=== PATIENT | female | born 1965 | race African-American/Black ===

== ENCOUNTER 2018-03-07 22:01 | Inpatient (IN) | payer OTHER ==
[~2018-03-07] VITALS: Ht 172.7 cm; Wt 111.8 kg
[~2018-03-07 22:01] MED LIST: CALCIUM500 M4 PO; DILTIAZEM 24HR120 MG PO; FEOSOL325 MG PO; HYDROCHLOROTHIA25 MG PO; HYDROCODON-ACE1 EAC7 PO; KEFLEX500 MG PO; MOBIC7.5 MG PO; NAPROSYN500 MG PO; VITAMIN D31000 UNI2 PO; ZESTRIL,PRINIVI10 MG PO
[2018-03-08 06:22] VITALS: BP 155/86
[2018-03-08 10:54] LABS: HEMATOCRIT 35.8 % (36.0-46.0); HEMOGLOBIN 11.1 G/DL (11.9-15.5); MCV 89.1 FL (83-99)
[2018-03-08 12:40] VITALS: BP 142/64
[2018-03-08 15:41] VITALS: BP 127/67
[2018-03-08 20:23] VITALS: BP 143/73
[2018-03-09 00:30] VITALS: BP 138/87
[2018-03-09 04:19] VITALS: BP 127/69
[2018-03-09 04:52] LABS: HEMATOCRIT 33.7 % (36.0-46.0); HEMOGLOBIN 10.9 G/DL (11.9-15.5)
[2018-03-09 05:06] LABS: CHLORIDE 97 mEq/L (99-109)
[2018-03-09 05:07] LABS: SODIUM 138 mEq/L (136-147)
[2018-03-09 05:08] LABS: GLUCOSE 120 mg/dL (70-99)
[2018-03-09 05:12] LABS: CREATININE 1.1 mg/dL (0.6-1.3); GFR ESTIMATE (CALCULATED) > 59 mL/min/
[2018-03-09 05:13] LABS: UREA NITROGEN (BUN) 15 mg/dL (9-23)
[2018-03-09 08:35] VITALS: BP 152/86
[2018-03-09] MEDS ORDERED: ELIQUIS2.5 MG PO (09:08)
[2018-03-09] MEDS ORDERED: OXYCODONE HCL5 MG PO (09:08)
[2018-03-09 12:44] VITALS: BP 139/61
[2018-03-09 15:55] VITALS: BP 137/80
[2018-03-09 19:48] VITALS: BP 130/61
[2018-03-10 00:25] VITALS: BP 109/56
[2018-03-10 04:05] VITALS: BP 125/59
[2018-03-10 07:59] VITALS: BP 132/62
[2018-03-10 12:17] VITALS: BP 137/68
== END 2018-03-10 13:00 | disposition home health service (06) | DRG 470 ==
LOC: ENRESERV 22:01 → 2SOUTH 03-08 05:46 → 3WEST 03-08 05:46 → 2SOUTH 03-08 14:42 → 3WEST 03-10 13:00
PROVIDERS: Orthopaedic Surgery
PROC: 0SRB0JA Replacement of Left Hip Joint with Synthetic Substitute, Uncemented, Open Approach (ICD-10-PCS; principal; 2018-03-08)
DX: M16.12 Unilateral primary osteoarthritis, left hip (principal); I10 Essential (primary) hypertension; E66.9 Obesity, unspecified; Z68.37 Body mass index [BMI] 37.0-37.9, adult
CPT/HCPCS: 80048; 85014; 85018; 97530 GP; J0690; J1100; J1170; J1885; J2250; J2405; J3010; J7050; J7120; J7643; S0020